=== PATIENT | male | born 1940 | race Two or more races ===

== ENCOUNTER 2018-08-28 11:31 | Emergency (ER) | payer MEDICARE, OTHER ==
[~2018-08-28] VITALS: Ht 160 cm; Wt 90.0 kg
[2018-08-28] MEDS ORDERED: ACETAMINOPHEN 325MG TABLET PO ONE (14:00)
[2018-08-28 14:02] VITALS: BP 105/74
== END 2018-08-28 14:02 | disposition home or self-care (01) ==
LOC: ER 11:31
DX: J34.0 Abscess, furuncle and carbuncle of nose (principal); E11.9 Type 2 diabetes mellitus without complications; Z98.890 Other specified postprocedural states
CPT/HCPCS: 99283